=== PATIENT | female | born 1995 | race Caucasian/White ===

== ENCOUNTER 2017-02-05 16:07 | Emergency (ER) | payer OTHER ==
[~2017-02-05] VITALS: Ht 160 cm; Wt 66.2 kg
[~2017-02-05 16:07] MED LIST: BCPILLS PO
[2017-02-05 16:09] VITALS: Ht 160 cm; Wt 66.2 kg
--- NOTE | 2017-02-05 16:22 | EMERGENCY ROOM VISIT NOTE ---
ED Visit Note First contact with patient: 16:12 CHIEF COMPLAINT: Foot pain HISTORY OF PRESENT ILLNESS: This 21-year-old female patient presents to the emergency department ambulatory complaining of swelling and pain in the right foot at rest and worse with weight bearing. 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 The patient rates the pain as sharp and 6/10. The patient has no significant relief of the pain. The patient is able to walk. No numbness or weakness. No ankle pain. There are no lacerations of the foot. She complains of pain in the first, second and third toes. Patient denies previous injury to this foot. REVIEW OF SYSTEMS: GENERAL: A 6 system review of systems was completed with positives and pertinent negatives in the HPI. ALLERGIES: Penicillin, sulfa MEDICATIONS: None PMH: None SOCIAL HISTORY: The patient lives locally. She is employed PHYSICAL EXAM: Vital Signs: Reviewed Nurse's notes, vital signs stable. GENERAL : This is a 21-year-old female, in no acute distress, but appears in pain, well- developed, well-nourished. MUSCULOSKELETAL: There is no visual deformity of the right foot. There is no erythema or ecchymosis. There is no warmth. There is tenderness over the first, second and third toes of the right foot. The range of motion of the ankle is not limited secondary . There is no tenderness over the plantar fascia. Dorsi flexion 5/5 and Plantar flexion 5/5. The skin is intact and there are no lacerations or puncture wounds. Dorsalis pedis pulse 2+ . Capillary refill less than 2 seconds. EMERGENCY DEPARTMENT COURSE: I examined the patient. An X-ray of the right foot was reviewed by myself and radiology and reveals no fracture or dislocation. The patient was placed in a post-op shoe . The patient was discharged home in good condition. [~ rep ct add3]] RIGHT FOOT MIN 3 VIEWS ROUTINE CLINICAL HISTORY: Right foot pain. Trauma. COMPARISON: None. DISCUSSION: No fractures or dislocations are visualized. IMPRESSION: No fractures identified. Current/Historical Medications No Active Prescriptions or Reported Meds Allergies Coded Allergies: Penicillins (Verified Allergy, Severe, hives, 02/22/13) Sulfa Antibiotics (Verified Allergy, Intermediate, Hives, 02/05/17) Vital Signs Date Time Temp Pulse Resp B/P (MAP) Pulse Ox O2 Delivery O2 Flow Rate FiO2 02/05/17 17:32 36.9 74 18 114/77 98 02/05/17 16:09 36.9 74 18 114/77 98 Room Air Departure Information Impression Primary Impression: Contusion of foot Additional Impression: Work related injury Dispostion Home / Self-Care Condition GOOD Prescriptions No Active Prescriptions or Reported Meds Referrals No Doctor, Assigned (PCP) Patient Instructions ED Contusion Foot, My [facility] Additional Instructions Ibuprofen 600 milligrams every 6-8 hours for pain Ice intermittently over the next 24-48 hours Recheck with occupational medicine or employee health in 5-7 days if pain has not resolved Wear the postop shoe when up and about for the next 5-7 days Return with any worsening symptoms Problem Qualifiers Primary Impression: Contusion of foot Encounter type: initial encounter
--- NOTE | 2017-02-05 16:58 | DIAGNOSTIC IMAGING REPORT ---
RIGHT FOOT MIN 3 VIEWS ROUTINE CLINICAL HISTORY: Right foot pain. Trauma. COMPARISON: None. DISCUSSION: No fractures or dislocations are visualized. IMPRESSION: No fractures identified. Electronically signed by: Sedrick Burkett M.D. 02/05/2017 4:57 PM Dictated Date/Time: 02/05/2017 4:56 PM
[2017-02-05 17:32] VITALS: BP 114/77; PULSE 74; TEMP 36.9; O2SAT 98
== END 2017-02-05 17:33 | disposition home or self-care (01) ==
LOC: C.EDB 16:09 → C.EDD 17:33
DX: S90.31XA Contusion of right foot, initial encounter (principal); W20.8XXA Other cause of strike by thrown, projected or falling object, initial encounter; Y92.89 Other specified places as the place of occurrence of the external cause; Y99.0 Civilian activity done for income or pay; Z88.0 Allergy status to penicillin; Z88.2 Allergy status to sulfonamides

== ENCOUNTER → 2017-04-28 | Outpatient (CLI) | payer OTHER ==
[2017-05-01 02:28] LABS: CHLAMYDIA TRACH RNA*** NOT DETECTED (NOT DETECTED); GC (NEIS GONORRHOEAE)RNA** NOT DETECTED (NOT DETECTED)
== END | disposition home or self-care (01) ==
LOC: C.LABSPEC 14:53
PROVIDERS: ATTEND Obstetrics & Gynecology
DX: Z34.01 Encounter for supervision of normal first pregnancy, first trimester (principal)

== ENCOUNTER → 2017-04-28 | Outpatient (CLI) | payer OTHER | END | disposition home or self-care (01) | LOC: C.LABSPEC 16:06 | PROVIDERS: ATTEND Obstetrics & Gynecology | DX: Z34.01 Encounter for supervision of normal first pregnancy, first trimester (principal) ==

== ENCOUNTER → 2017-09-22 | Outpatient (CLI) | payer OTHER | END | disposition home or self-care (01) | LOC: C.LABSPEC 14:49 | PROVIDERS: ATTEND Obstetrics & Gynecology | DX: O26.892 Other specified pregnancy related conditions, second trimester (principal); Z3A.00 Weeks of gestation of pregnancy not specified; R30.0 Dysuria ==

== ENCOUNTER 2017-12-18 03:43 | Inpatient (IN) | payer OTHER ==
[~2017-12-18] VITALS: Ht 160 cm; Wt 88.0 kg
[2017-12-18] MEDS ORDERED: no home meds (04:53)
[2017-12-18 04:54] VITALS: BMI 34.4
[2017-12-18] MEDS ORDERED: BUPIVACAINE 0.25% 30 ML VIAL ONE (08:06)
[2017-12-18] MEDS ORDERED: EpHEDrine SULFATE INJ 50 MG/ML AMP ONE (08:07)
[2017-12-18] MEDS ORDERED: FENTANYL 2MCG/ML ROPIV 1.25MG/ML 100ML BAG ONE (08:07)
[2017-12-18] MEDS ORDERED: FENTANYL CITRATE INJ 50 MCG/1 ML 2 ML VIAL ONE (08:07)
[2017-12-18 08:13] LABS: HEMATOCRIT 37.8 % (37-47); HEMOGLOBIN 12.6 g/dL (12.0-16.0); MEAN CELL VOLUME 88.3 fL (80-100); MEAN CORPUSCULAR HEMOGLOBIN 29.4 pg (25-34); MEAN CORPUSCULAR HGB CONC 33.3 g/dl (32-36); MEAN PLATELET VOLUME 12.1 fL (7.4-10.4); PLATELET COUNT 137 K/uL (130-400); RED CELL DISTRIBUTION WIDTH CV 12.6 % (11.5-14.5); RED CELL DISTRIBUTION WIDTH SD 40.4 fL (36.4-46.3); WHITE BLOOD COUNT 18.99 K/uL (4.8-10.8)
[2017-12-18 08:38] VITALS: Ht 160 cm; Wt 88.0 kg
[2017-12-18] MEDS ORDERED: NALOXONE HCL INJ 1 MG in SODIUM CHLORIDE 0.9% 1000ML 1,000 ML IV PRN (09:49)
[2017-12-18] MEDS ORDERED: LACTATED RINGER'S 1000ML 500 ML IV PRN (09:49)
[2017-12-18] MEDS ORDERED: FENTANYL 2MCG/ML ROPIV 1.25MG/ML 100ML BAG EPI PRN (10:00)
[2017-12-18] MEDS ORDERED: DiphenhydrAMINE HCL 50 MG/ML VIAL IV PRN (10:00)
[2017-12-18] MEDS ORDERED: EpHEDrine SULFATE INJ 50 MG/ML AMP IV PRN (10:00)
[2017-12-18] MEDS ORDERED: NALOXONE HCL INJ 0.4 MG/1 ML VIAL/CARP IV PRN (10:00)
[2017-12-18] MEDS ORDERED: NALBUPHINE HCL INJ 10 MG/ML 1ML AMP IV PRN (10:00)
[2017-12-18] MEDS ORDERED: NURSING VERBAL MED ORDER ONE (10:00)
[2017-12-18] MEDS ORDERED: ONDANSETRON INJ 2 MG/ML 2 ML VIAL IV PRN (10:00)
[2017-12-18] MEDS ORDERED: LACTATED RINGER'S 1000ML 1,000 ML IV SCH (10:00)
[2017-12-18] MEDS ORDERED: PROMETHAZINE HCL INJ 6.25 MG in SODIUM CHLORIDE 0.9% 50ML 50 ML IV PRN (10:00)
[2017-12-18] MEDS ORDERED: OXYTOCIN 30 UNITS/500ML NSS IV ONE (12:38)
[2017-12-18] MEDS ORDERED: OXYTOCIN 30 UNITS/500ML NSS IV PRN (14:15)
[2017-12-18] MEDS ORDERED: BENZOCAINE 20% AER SPR 82.5 GM CAN EXT PRN (14:15)
[2017-12-18] MEDS ORDERED: ACETAMINOPHEN 325 MG TAB PO PRN (14:15)
[2017-12-18] MEDS ORDERED: ACETAMINOPHEN/CODEINE 300/30MG TAB PO PRN ×2 (14:15)
[2017-12-18] MEDS ORDERED: HYDROCORTISONE ACETATE 25 MG SUPP PR PRN (14:15)
[2017-12-18] MEDS ORDERED: SUPERCREAM 0.870 % 15GM JAR EXT PRN (14:15)
[2017-12-18] MEDS ORDERED: LANOLIN OINT EXT PRN (14:15)
[2017-12-18] MEDS ORDERED: OXYCODONE/ACETAMINOPHEN 5-325 TAB PO PRN (14:15)
[2017-12-18] MEDS ORDERED: DIPHTHERIA/TETANUS/PERTUSSIS 0.5 ML SYR/VIAL IM. ONE (14:15)
--- NOTE | 2017-12-18 14:27 | DELIVERY SUMMARY ---
DATE OF DELIVERY: 12/18/2017 DELIVERY NOTE She is a 22-year-old 1, para 1. General health is good. Blood type is O positive, rubella immune. She was admitted in spontaneous labor. During the night, her membranes ruptured surgically at about 3 cm. Fluid was clear. Soon after that, she requested and received epidural for pain control. After she got the epidural, she labored spontaneously without any stimulation, went to full dilatation and pushed out a live female infant via direct occiput anterior position over an intact perineum. was suctioned through the mouth and the nose. Cord was clamped and cut. Cord blood was taken. With IV Pitocin, the placenta was removed intact. Inspection of the peritoneum revealed a tear through the left labia minora and this was repaired anatomically, first with a deep suture of 2-0 Vicryl to approximate the edges of the labia minora, then a mattress suture on either side and then a running continuous suture in the vagina. She also had a small superficial tear on the right side which was repaired with a running 3-0 chromic. Following this, vag exam revealed no hematoma formation or sponges in the vagina. Hemostasis was good. Estimated blood loss was 200 mL. Estimated Apgars were 8 and 9 respectively. MTDD
--- NOTE | 2017-12-18 14:34 | Anesthesia Procedure Note ---
Anesthesia Epidural Removal Nt Date & Time Dec 18, 2017 at 14:34 Vital Signs Pain Intensity: 0.0 Notes Mental Status: alert / awake / arousable, participated in evaluation Nausea / Vomiting: adequately controlled Pain: adequately controlled Airway Patency, RR, SpO2: stable & adequate BP & HR: stable & adequate Hydration State: stable & adequate Neuraxial Anesthesia: was administered Anesthetic Complications: no major complications apparent, pt satisfied with anesthetic care Epidural: removed without complications, with tip intact
[2017-12-18] MEDS: IBUPROFEN 600 MG TAB PO PRN ×2 (17:24→23:24)
[2017-12-18 17:25] VITALS: BP 118/73; PULSE 109; TEMP 36.7
[2017-12-18] MEDS: DOCUSATE SODIUM 100 MG CAP PO SCH (20:16)
[2017-12-18 20:20] VITALS: BP 110/64; PULSE 108; TEMP 36.7; O2SAT 96
[2017-12-18 23:05] VITALS: BP 122/82; PULSE 90; TEMP 36.6; O2SAT 98
[2017-12-19 03:15] VITALS: BP 122/83; PULSE 86; TEMP 36.5; O2SAT 96
[2017-12-19 06:45] LABS: HEMATOCRIT 35.3 % (37-47); HEMOGLOBIN 11.9 g/dL (12.0-16.0)
[2017-12-19 07:54] VITALS: BP 114/74; PULSE 95; TEMP 36.5; O2SAT 98
[2017-12-19] MEDS: PRENATAL VITAMIN TAB PO SCH (07:55)
[2017-12-19] MEDS: FERROUS SULFATE 325 MG TAB PO SCH (07:55)
[2017-12-19] MEDS: DOCUSATE SODIUM 100 MG CAP PO SCH ×2 (07:55→20:10)
--- NOTE | 2017-12-19 09:01 | Progress Note ---
Subjective Dec 19, 2017. Subjective conversation w/ patient Ambulation: ambulating normally Voiding: no voiding problems Passing Gas: Yes Diet Tolerance: Regular Diet Lochia: Small Feeding Type: Breast Feeding Review of Systems Constitutional: + fever Objective Vital Signs Date Time Temp Pulse Resp B/P (MAP) Pulse Ox O2 Delivery O2 Flow Rate FiO2 12/19/17 07:54 36.5 95 18 114/74 (87) 98 Room Air 12/19/17 07:45 Room Air 12/19/17 03:15 36.5 86 16 122/83 (96) 96 Room Air 12/18/17 23:05 98 Room Air 12/18/17 23:05 36.6 90 18 122/82 (95) 98 Room Air 12/18/17 20:20 36.7 108 18 110/64 (79) 96 Room Air 12/18/17 17:25 Room Air 12/18/17 17:25 36.7 109 20 118/73 (88) Room Air Physical Exam General Appearance: WELL-APPEARING Abdomen: non tender Fundus: Firm, Non-Tender Extremities: no pedal edema, no calf tenderness Laboratory Results Last 24 Hours Test 12/19/17 06:32 Hemoglobin 11.9 g/dL Hematocrit 35.3 % Assessment and Plan Problem List Medical Problems: (1) Contusion of foot Status: Acute (2) Work related injury Status: Acute Post- Day#: 1
[2017-12-19 13:41] VITALS: BP 118/77; PULSE 93; TEMP 37
[2017-12-19 16:30] VITALS: BP 114/72; PULSE 102; TEMP 36.8; O2SAT 98
[2017-12-19] MEDS: IBUPROFEN 600 MG TAB PO PRN (17:32)
[2017-12-19 19:55] VITALS: BP 129/82; PULSE 110; TEMP 36.8; O2SAT 98
[2017-12-19] MEDS ORDERED: BISACODYL 5 MG TABEC PO SCH (20:00)
[2017-12-20 03:05] VITALS: BP 117/68; PULSE 84; TEMP 36.7; O2SAT 97
[2017-12-20] MEDS ORDERED: BISACODYL 10 MG SUPP PR PRN (07:00)
[2017-12-20 08:00] VITALS: BP 114/76; PULSE 84; TEMP 36.7; O2SAT 96
--- NOTE | 2017-12-20 08:12 | Progress Note ---
Subjective Dec 20, 2017. Subjective conversation w/ patient Ambulation: ambulating normally Voiding: no voiding problems Passing Gas: Yes Diet Tolerance: Regular Diet Lochia: Small Feeding Type: Breast Feeding Review of Systems Constitutional: + fever Objective Vital Signs Date Time Temp Pulse Resp B/P (MAP) Pulse Ox O2 Delivery O2 Flow Rate FiO2 12/20/17 03:05 36.7 84 16 117/68 (84) 97 Room Air 12/19/17 19:55 36.8 110 18 129/82 (98) 98 Room Air 12/19/17 19:55 98 Room Air 12/19/17 16:30 36.8 102 16 114/72 (86) 98 Room Air 12/19/17 16:30 98 Room Air 12/19/17 13:41 37.0 93 16 118/77 (91) Room Air Physical Exam General Appearance: WELL-APPEARING Abdomen: non tender Fundus: Firm, Non-Tender Extremities: no pedal edema, no calf tenderness Assessment and Plan Problem List Medical Problems: (1) Contusion of foot Status: Acute (2) Work related injury Status: Acute Post- Day#: 2
--- NOTE | 2017-12-20 08:14 | Discharge Instructions ---
Discharge Instructions Date of Service Dec 20, 2017. Admission Reason for Admission: LABOR Discharge Discharge Diagnosis / Problem: term Discharge Goals Goal(s): Routine recovery after delivery Activity Recommendations Activity Limitations: as noted below ACTIVITY RECOMMENDATIONS: * Gradual return to full activity over the next 2-3 weeks. * No lifting - nothing heavier than baby over the next 2-3 weeks. * Do not engage in vigorous exercise, sexual activity or sports until cleared by your physician. * Do not drive or operate any motorized equipment until cleared by your physician. * You may shower/bathe daily. DIET: Resume Previous Diet If Breast-feeding: * Increase caloric intake by 500 calories, eat 3 well balanced meals, 2 high protein snacks a day and drink 6-8 8oz. glasses of fluid per day. BREAST CARE: If you are not breast feeding: * Wear a supportive bra 24 hours a day for one to two weeks. * Avoid stimulating your breasts and nipples as much as possible during the first few weeks after delivery. * When taking a shower, have the warm water hit your back, not breasts. * When your breasts feel full, apply ice packs. Usually three to four times a day helps ease the discomfort. * Take a mild pain medication (Tylenol / Motrin) when you are uncomfortable. If breast feeding: * Use breast milk to lubricate nipples. Lansinoh cream may be used for sore nipples. You do not need to remove cream prior to breast feeding. If using a different brand of cream, check the label for directions regarding removal of cream prior to nursing. * Wear a supportive bra. * If having problems with breasts or breast feeding, call a customer service consultant or your health care provider. OVER THE COUNTER MEDICATION: * For discomfort or pain, you may use Acetaminophen (Tylenol), Ibuprofen (Advil ), or Naproxen (Aleve) following the package directions. * For constipation you may use Colace following the package directions. SPECIAL CARE INSTRUCTIONS: * Vaginal rest (no tampons, douching, intercourse) until after doctor 's visit. * control as discussed with doctor. * Verbalizes understanding of car seat law as reviewed with patient nursing. * Car Seat hand-out given and reviewed with patient by nursing. * Shaken baby information reviewed with patient by nursing. Call you doctor if: * Temperature greater than or equal to 100.4 degrees F or 38.0 degrees C. Take your temperature twice daily for a week. * Bleeding becomes heavier than the heaviest part of your period - saturating a sanitary pad within an hour. * Passing large clots. * Bleeding has a foul smelling odor. * Signs and symptoms of phlebitis: leg pain, warm, red or swollen area on leg. * "Baby Blues" lasting longer than two weeks. ++ If you have had a and incision has increased pain, redness, swelling, presence of any drainage, or if the incision starts to open up. If you have any questions or concerns, call your health care practitioner at [phone]. FOLLOW-UP VISIT: Please call the office at to schedule a 6 week examination. . Current Hospital Diet ACTIVITY RECOMMENDATIONS: * Gradual return to full activity over the next 2-3 weeks. * No lifting - nothing heavier than baby over the next 2-3 weeks. * Do not engage in vigorous exercise, sexual activity or sports until cleared by your physician. * Do not drive or operate any motorized equipment until cleared by your physician. * You may shower/bathe daily. DIET: Resume Previous Diet If Breast-feeding: * Increase caloric intake by 500 calories, eat 3 well balanced meals, 2 high protein snacks a day and drink 6-8 8oz. glasses of fluid per day. BREAST CARE: If you are not breast feeding: * Wear a supportive bra 24 hours a day for one to two weeks. * Avoid stimulating your breasts and nipples as much as possible during the first few weeks after delivery. * When taking a shower, have the warm water hit your back, not breasts. * When your breasts feel full, apply ice packs. Usually three to four times a day helps ease the discomfort. * Take a mild pain medication (Tylenol / Motrin) when you are uncomfortable. If breast feeding: * Use breast milk to lubricate nipples. Lansinoh cream may be used for sore nipples. You do not need to remove cream prior to breast feeding. If using a different brand of cream, check the label for directions regarding removal of cream prior to nursing. * Wear a supportive bra. * If having problems with breasts or breast feeding, call a customer service consultant or your health care provider. OVER THE COUNTER MEDICATION: * For discomfort or pain, you may use Acetaminophen (Tylenol), Ibuprofen (Advil ), or Naproxen (Aleve) following the package directions. * For constipation you may use Colace following the package directions. SPECIAL CARE INSTRUCTIONS: * Vaginal rest (no tampons, douching, intercourse) until after doctor 's visit. * control as discussed with doctor. * Verbalizes understanding of car seat law as reviewed with patient nursing. * Car Seat hand-out given and reviewed with patient by nursing. * Shaken baby information reviewed with patient by nursing. Call you doctor if: * Temperature greater than or equal to 100.4 degrees F or 38.0 degrees C. Take your temperature twice daily for a week. * Bleeding becomes heavier than the heaviest part of your period - saturating a sanitary pad within an hour. * Passing large clots. * Bleeding has a foul smelling odor. * Signs and symptoms of phlebitis: leg pain, warm, red or swollen area on leg. * "Baby Blues" lasting longer than two weeks. ++ If you have had a and incision has increased pain, redness, swelling, presence of any drainage, or if the incision starts to open up. If you have any questions or concerns, call your health care practitioner at [phone]. FOLLOW-UP VISIT: Please call the office at to schedule a 6 week examination. Patient's current hospital diet: Regular Diet Discharge Diet Recommended Diet: Clear Liquid Diet Pending Studies Studies pending at discharge: no Medical Emergencies . Who to Call and When: Medical Emergencies: If at any time you feel your situation is an emergency, please call 911 immediately. . Non-Emergent Contact Non-Emergency issues call your: Judicial Law Clerk Call Non-Emergent contact if: temperature is above 100.5 . . "Provider Documentation" section prepared by Sulaiman Matson. .
[2017-12-20] MEDS: PRENATAL VITAMIN TAB PO SCH (08:25)
[2017-12-20] MEDS: FERROUS SULFATE 325 MG TAB PO SCH (08:25)
[2017-12-20] MEDS: DOCUSATE SODIUM 100 MG CAP PO SCH (08:25)
[2017-12-20 13:30] VITALS: BP_DIAS 76; PULSE 84; TEMP 36.7
== END 2017-12-20 13:58 | disposition home or self-care (01) | DRG 775 ==
LOC: C.OPB 03:43 → C.LD 03:43 → C.OPB 07:41 → C.LD 07:41 → C.OBG 17:25
PROVIDERS: ADMIT Obstetrics & Gynecology; ATTEND Obstetrics & Gynecology
PROC: 10E0XZZ Delivery of Products of Conception, External Approach (ICD-10-PCS; principal; 2017-12-18)
PROC: 0HQ9XZZ Repair Perineum Skin, External Approach (ICD-10-PCS; principal; 2017-12-18)
DX: O70.0 First degree perineal laceration during delivery (principal); Z3A.39 39 weeks gestation of pregnancy; Z37.0 Single live birth

== ENCOUNTER 2020-11-10 01:19 | Inpatient (IN) ==
[2020-11-10] MEDS ORDERED: OXYTOCIN 30 UNITS/500 ML BAG IV PRN ×3 (02:02→10:48)
[2020-11-10] MEDS ORDERED: LACTATED RINGER'S 1,000 ML IV PRN (02:02)
[2020-11-10 02:31] LABS: Hemoglobin 11.9 g/dL (12.0-16.0); Mean Corpuscular Hemoglobin 30.4 pg (25-34); Mean Corpuscular Volume 89.3 fL (80-100); Mean Platelet Volume 11.1 fL (7.4-10.4); Platelet Count 156 K/uL (130-400); RDW Coefficient of Variation 12.8 % (11.5-14.5); RDW Standard Deviation 41.1 fL (36.4-46.3); Red Blood Count 3.92 M/uL (4.2-5.4)
[2020-11-10] MEDS: BUTORPHANOL TARTRATE 1 MG/ML VIAL IV PRN ×2 (03:44→05:54)
[2020-11-10] MEDS ORDERED: ePHEDrine sulfate 50 MG/ML AMP ONE (07:02)
[2020-11-10] MEDS ORDERED: BUPIVACAINE 0.25% 30 ML VIAL ONE (07:02)
[2020-11-10] MEDS ORDERED: SODIUM CHLORIDE 0.9% INJ 10 ML VIAL ONE (07:02)
[2020-11-10] MEDS ORDERED: fentaNYL citrate 100 MCG/2 ML VIAL ONE (07:03)
[2020-11-10] MEDS ORDERED: fentaNYL 2MCG/ML ROPIVACAINE 1.25MG/ML 100 ML BAG EPI ONE (07:03)
[2020-11-10] MEDS ORDERED: NALOXONE HCL 0.4 MG/1 ML VIAL/CARP IV PRN (07:40)
[2020-11-10] MEDS ORDERED: ONDANSETRON INJ 2 MG/ML 2 ML VIAL IV PRN (07:40)
[2020-11-10] MEDS ORDERED: NALOXONE HCL 1 MG in SODIUM CHLORIDE 0.9% 1000ML 1,000 ML IV PRN (07:40)
[2020-11-10] MEDS ORDERED: ePHEDrine sulfate 50 MG/ML AMP IV PRN (07:40)
[2020-11-10] MEDS ORDERED: fentaNYL 2MCG/ML ROPIVACAINE 1.25MG/ML 100 ML BAG EPI PRN (07:40)
[2020-11-10] MEDS ORDERED: diphenhydrAMINE 50 MG/ML VIAL IV PRN (07:40)
[2020-11-10] MEDS ORDERED: PROMETHAZINE HCL 6.25 MG in SODIUM CHLORIDE 0.9% 50 ML IV PRN (07:40)
--- NOTE | 2020-11-10 07:40 | Anesthesiology Consultation ---
Date of Service November 10, 2020 Assessment & Plan (1) Encounter for pre-operative examination: Chart Review Chart Review: Patient NOT seen in Pre Admission Testing and Acceptable Risk for Labor Epidural Consults Requested none ASA ASA2 Proposed Anesthesia Anesthesia Type: Labor Epidural Risk / Benefits Reviewed With: PT / POA / Parent / Guardian, Accepts Plan and Informed Consent Obtained History Height/Weight Height: 5 ft 3 in Weight: 106.141 kg Allergies Allergy/AdvReac Type Severity Reaction Status Date / Time Penicillins Allergy Severe hives Verified 11/10/20 01:36 amoxicillin Allergy Intermediate HIVES Verified 11/10/20 01:36 Sulfa (Sulfonamide Allergy Intermediate Hives Verified 11/10/20 01:36 Antibiotics) Medications Home Medications Medication Instructions Recorded Confirmed Last Taken [id number]-FA 1 tab PO DAILY 11/10/20 11/10/20 11/09/20 [] Active Medications Generic Name Dose Route Start Last Admin Trade Name Freq PRN Reason Stop Dose Admin Butorphanol Tartrate 1 mg 11/10/20 02:57 11/10/20 05:54 Butorphanol Tartrate 1 Mg/Ml Vial IV 12/10/20 02:56 1 mg Q2HWA PRN Administration Pain Lactated Ringer's 1,000 mls @ 125 mls/hr 11/10/20 02:02 11/10/20 07:20 Lr IV 11/12/20 02:01 125 mls/hr .Q8H PRN Infusion L&D Protocol Protocol Past Medical History Medical History Spontaneous vaginal delivery [facility] 12/2017 Exercise / Class Metabolic Activity II 4-5 Yardwork/Stairs/Walk up hill Past Surgical History Surgical History No history of previous surgery Past Anesthesia History No Hx of Anesthesia Complications and No Family Hx of Anesthesia Complications History of PONV No Hx of PONV and No Hx of Motion Sickness Social History Smoking Status: Former smoker Hx Alcohol Use: No Hx Substance Use: No Physical Exam Vital Signs Last Vital Signs Temp 37.0 C 11/10/20 01:39 Pulse 108 H 11/10/20 07:34 Resp 18 11/10/20 07:00 BP 113/66 11/10/20 07:34 Pulse Ox 98 06/25/21 07:33 ENMT Mouth: no dentition abnormality Thyromental Distance: > or= 3.5 Finger Breadths Mallampati Class: II Neck normal visual inspection Respiratory normal respiratory effort Auscultation: lungs clear to auscultation bilaterally Cardiovascular Rate/Rhythm: regular rate and regular rhythm Psychiatric Orientation: alert Lab Results Anesthesia Preop Results Results Anesthesia Widget: WBC 12.50 K/uL (4.8-10.8) H 11/10/20 Hgb 11.9 g/dL (12.0-16.0) L 11/10/20 Hct 35.0 % (37-47) L 11/10/20 Plt 156 K/uL (130-400) 11/10/20 SARS-CoV-2, RNA, NAAT NEGATIVE (NEGATIVE) 11/10/20 Testing Laboratory Results 11/10/20 02:21
[2020-11-10] MEDS ORDERED: LIDOCAINE 1% LOCAL 20 ML VIAL ONE (10:29)
[2020-11-10] MEDS ORDERED: SUPERCREAM 0.870% 15 GM JAR EXT PRN (10:48)
[2020-11-10] MEDS ORDERED: BENZOCAINE 20% AER SPR 82.5 GM CAN EXT PRN (10:48)
[2020-11-10] MEDS ORDERED: HYDROCORTISONE ACETATE 25 MG SUPP PR PRN (10:48)
[2020-11-10] MEDS ORDERED: oxyCODONE/ACETAMINOPHEN 5mg/325mg TAB PO PRN (10:48)
[2020-11-10] MEDS ORDERED: DIPHTHERIA/TETANUS/PERTUSSIS 0.5 ML SYR/VIAL IM ONE (10:48)
[2020-11-10] MEDS ORDERED: ACETAMINOPHEN W/CODEINE #3 1 TAB PO PRN (10:48)
[2020-11-10] MEDS ORDERED: bisacodyL 10 MG SUPP PR PRN (10:48)
[2020-11-10] MEDS ORDERED: ACETAMINOPHEN 325 MG TAB PO PRN (10:48)
--- NOTE | 2020-11-10 11:02 | Delivery Summary ---
DATE: 11/10/2020 She is 1, para 2, blood type O positive, group B strep negative. Came in the night before, s he was scheduled for induction, in labor. She had spontaneous unstimulated labor. She received roly ral doses of Stadol for pain control and then eventually had an epidural. Got good pain relief from the epidural. After epidural was administered, membranes were ruptured surgically. Fluid was clear. Eventually, we started to stimulate her with IV Pitocin to get the contractions more regular. She went to full dilatation, pushed out a live male via direct occiput anterior position over an i ntact perineum. There was a nuchal cord around the neck, which was slipped over the body. We allowe d the cord to pulse for 1 minute and then we clamped the cord. The cord was cut by the father. Cord blood was taken. With IV Pitocin running, the placenta was removed intact. Inspection revealed the perineum was intact, but she had a midline clitoral laceration that was bleeding and 2 periurethral lacerations of the labia minora. These were all infiltrated with local. We then did suture the labi a minora lacerations with a running 3-0 chromic on both the right and left side. In the midline clit oral laceration, we used 3 interrupted sutures of 3-0 chromic to control the bleeding. Following thi s, hemostasis was good. Vaginal exam was normal. Estimated blood loss was 100 mL. Job ID: [id number]
--- NOTE | 2020-11-10 15:14 | Anesthesia Procedure Note ---
Date of Service November 10, 2020 Anesthesia Post Epidural Note Vital Signs Vital Signs: Temp Pulse Resp BP Pulse Ox 36.4 C L 96 H 20 105/62 99 11/10/20 07:34 11/10/20 13:51 11/10/20 13:04 11/10/20 13:51 11/10/20 10:48 Notes Mental Status: alert / awake / arousable Nausea / Vomiting: adequately controlled Pain: adequately controlled Airway Patency, RR, SpO2: stable & adequate BP & HR: stable & adequate Hydration State: stable & adequate Neuraxial Anesthesia: was administered and sensory block is resolving Anesthetic Complications: no major complications apparent and Pt Satisfied with anesthetic care Epidural: Removed without complications and With tip intact
[2020-11-10] MEDS: IBUPROFEN 600 MG TAB PO PRN ×2 (19:43→23:46)
[2020-11-10] MEDS: DOCUSATE SODIUM 100 MG CAP PO SCH (20:34)
[2020-11-11] MEDS: IBUPROFEN 600 MG TAB PO PRN (05:31)
[2020-11-11 07:07] LABS: Hematocrit (blood only) 32.3 % (37-47); Hemoglobin 10.6 g/dL (12.0-16.0); Mean Corpuscular Hemoglobin 29.8 pg (25-34); Mean Corpuscular Hgb Conc 32.8 g/dL (32-36); Mean Corpuscular Volume 90.7 fL (80-100); Mean Platelet Volume 11.7 fL (7.4-10.4); Platelet Count 143 K/uL (130-400); RDW Coefficient of Variation 12.9 % (11.5-14.5); RDW Standard Deviation 42.7 fL (36.4-46.3); Red Blood Count 3.56 M/uL (4.2-5.4); White Blood Count 11.04 K/uL (4.8-10.8)
[2020-11-11] MEDS: DOCUSATE SODIUM 100 MG CAP PO SCH (07:42)
[2020-11-11] MEDS ORDERED: PRENATAL VITAMIN 1 TAB PO SCH (08:00)
--- NOTE | 2020-11-11 09:13 | Obstetrical Progress Note ---
Date of Service November 11, 2020 Assessment & Plan Admission and Anticipated Discharge Date Admission Date: November 10, 2020 Physical Exam Physical Exam: abdomen soft and non tender ambulating well no calf tenderness vaginal bleeding scant hgb 10.6 Results & Data ([facility]) Vital Signs (Past 12 Hours) Vital Signs Temp Pulse Resp BP Pulse Ox 11/11/20 07:40 36.5 C 75 18 93/58 L 99 11/11/20 04:05 36.5 C 74 16 96/62 L 98 11/10/20 23:40 36.8 C 77 16 105/70 97
[2020-11-11] MEDS ORDERED: bisacodyL 5 MG TABEC PO SCH (20:00)
== END 2020-11-11 12:45 | disposition home or self-care (01) | DRG 807 ==
LOC: 4S1 01:19 → 4S2 14:25

== ENCOUNTER 2024-01-04 02:12 | Inpatient (IN) ==
[2024-01-04] MEDS ORDERED: OXYTOCIN 30 UNITS/NSS 30 UNITS/500 ML BAG IV PRN ×2 (05:50→12:53)
[2024-01-04] MEDS ORDERED: LIDOCAINE 1% LOCAL 20 ML VIAL INFIL PRN (05:50)
--- NOTE | 2024-01-04 05:57 | History & Physical Report ---
Date of Service January 04, 2024 Assessment & Plan (1) 39 weeks gestation of : (2) PROM (premature rupture of membranes): (3) Encounter for induction of labor: Plan admit, iv, labs, rec induction, given no ctx, can opt for po cytotec and after discussion of options, pt agrees. aware of off label use and purpose. fhts categ 1. History of Present Illness Chief Complaint: leaking fluid since about 120am. Primary Care Provider: NO PCP 28yo at 39+wks ega presents to L&D with above cc. Large gush of clear fluid. No ctx. No vb. In LD nursing having difficulty showing leakage. Patient walked with minimal dc on pad. PNC c/b. Transfer of care at 30wks, Dr. Matson PNL rhpos, ri, gbs neg OBH: x 2 GYNH:nl paps no stds Allergies Allergy/AdvReac Type Severity Reaction Status Date / Time Penicillins Allergy Severe hives Verified 12/31/23 14:56 amoxicillin Allergy Intermediate HIVES Verified 12/31/23 14:56 Sulfa (Sulfonamide Allergy Intermediate Hives Verified 12/31/23 14:56 Antibiotics) Home Medications Medication Instructions Recorded Confirmed Type vits no.124-ferrous fum 1 tab DAILY 01/04/24 01/04/24 History 27 mg iron-folic acid 800 mcg tablet ( Vitamin) Patient History Medical History (Updated 01/04/24 @ 05:56 by Anabell James MD, FACOG) Varicella vaccination Work related injury Contusion of foot Spontaneous vaginal delivery [facility] 12/2017 Surgical History No history of previous surgery Family History Father Hypertension Grandfather (Paternal) Hypertension Diabetes Denies family history of Ovarian cancer Breast cancer Colorectal cancer Social History (Updated 10/27/23 @ 14:13 by Pebbles Chau, OSWALD) Smoking Status: Never smoker Second Hand Exposure: No; Do You Dip or Chew Tobacco: No; Hx Alcohol Use: No Hx Substance Use: No Preferred Language: Irish Communication Ability: Effective Facsimile Operator Required: No Beliefs That Will Affect Care: None marital status: marital status details: Celestine Woods (32) [phone] Current Living Situation: Spouse and Family Current Living Situation Comment: Celestine- , Lois-6, Michael-3 current occupational status: employed current occupation: [employer] How many Children do You have: 2 Other Information That Helps Us Care for You: No Feels Safe at Home: Yes Assistive Devices: Glasses Review of Systems as per Subjective / HPI Physical Exam Constitutional: WD/WN, vitals as above Respiratory: normal respiratory effort, lungs clear to auscultation Cardiovascular: Rate/Rhythm: regular rate and regular rhythm Gastrointestinal (Abdomen): soft gravid nt [id number]# Musculoskeletal: no edema nontender calves Neurologic: grossly normal Psychiatric: A+Ox3, euthymic affect Genitourinary: Manual OB Exam: + cervical dilation 1 cm, + cervical effacement 50% and + station (mid medium) -2 OB Exam Monitor Tracing: + external FHT monitor used, + external uterine monitor used (irreg), + category I and + normal FHT variability SSE +pooling, +nitrazine +ferning Results & Data Vital Signs (Past 12 Hours) Vital Signs Temp Pulse Resp BP 01/04/24 02:30 99.0 F 18 01/04/24 02:27 91 H 128/84 Coding Level of Care Code None Diagnoses 39 weeks gestation of Z3A.39 PROM (premature rupture of membranes) O42.90 Encounter for induction of labor Z34.90
[2024-01-04] MEDS: miSOPROStoL 50 MCG TAB PO ONE (06:02)
[2024-01-04 06:28] LABS: Hematocrit (blood only) 32.3 % (37.0-47.0); Hemoglobin 10.9 g/dl (12.0-16.0); Mean Corpuscular Hemoglobin 29.5 pg (25.0-34.0); Mean Corpuscular Hgb Conc 33.7 g/dL (32.0-36.0); Mean Corpuscular Volume 87.3 fL (80.0-100.0); Mean Platelet Volume 12.2 fL (9.4-12.4); Platelet Count 123 K/uL (130-400); RDW Coefficient of Variation 12.6 % (11.5-14.5); RDW Standard Deviation 40.1 fL (36.4-46.3); White Blood Count 9.34 K/ul (4.8-10.8)
[2024-01-04] MEDS: LACTATED RINGER'S 1,000 ML IV PRN (09:50)
--- NOTE | 2024-01-04 10:02 | Anesthesiology Consultation ---
Date of Service January 04, 2024 Assessment & Plan (1) Encounter for pre-operative examination: Chart Review Chart Review: Acceptable Risk for Labor Epidural History Height/Weight Height: 5 ft 3 in Weight: 105.233 kg Allergies Allergy/AdvReac Type Severity Reaction Status Date / Time Penicillins Allergy Severe hives Verified 12/31/23 14:56 amoxicillin Allergy Intermediate HIVES Verified 12/31/23 14:56 Sulfa (Sulfonamide Allergy Intermediate Hives Verified 12/31/23 14:56 Antibiotics) Medications Home Medications Medication Instructions Recorded Confirmed Last Taken vits no.124-ferrous fum 1 tab DAILY 01/04/24 01/04/24 01/03/24 27 mg iron-folic acid 800 mcg tablet ( Vitamin) Active Medications Generic Name Dose Route Start Last Admin Trade Name Freq PRN Reason Stop Dose Admin Lactated Ringer's 1,000 mls @ 125 mls/hr 01/04/24 05:50 01/04/24 09:50 Lr IV 01/06/24 05:49 999 mls/hr .Q8H PRN Administration L&D Protocol Protocol Past Medical History Medical History (Updated 01/04/24 @ 10:02 by Cyrus Saravia MD) Varicella vaccination Contusion of foot Spontaneous vaginal delivery [facility] 12/2017 Past Family History Family History Father Hypertension Grandfather (Paternal) Hypertension Diabetes Denies family history of Ovarian cancer Breast cancer Colorectal cancer Past Surgical History Surgical History No history of previous surgery Social History Smoking Status: Never smoker Do You Dip or Chew Tobacco: No Hx Alcohol Use: No Hx Substance Use: No Physical Exam Vital Signs Last Vital Signs Temp 37.1 C 01/04/24 09:00 Pulse 89 01/04/24 09:55 Resp 18 01/04/24 09:00 BP 121/83 01/04/24 07:01 Pulse Ox 98 01/04/24 09:55 Testing Laboratory Results 01/04/24 06:13 Blood Type Cancelled 01/04/24 Unknown Antibody Screen Cancelled 01/04/24 Unknown
[2024-01-04] MEDS: fentANYL 2 MCG/ML BUPIVacaine 0.125%-NSS 100ML BAG ONE (10:31)
[2024-01-04] MEDS: fentaNYL citrate PF 100 MCG/2 ML VIAL ONE (10:31)
[2024-01-04] MEDS: LIDOCAINE 2%/EPINEPHRINE 1:200,000 20 ML PF ONE (10:32)
[2024-01-04] MEDS: BUPIVACAINE 0.25% PF 30 ML VIAL ONE (10:32)
[2024-01-04] MEDS ORDERED: ROPIVACAINE 0.5% PF 5 MG/ML 20 ML VIAL EPI PRN (10:33)
[2024-01-04] MEDS ORDERED: NALOXONE HCL 1 MG in SODIUM CHLORIDE 0.9% 1,000 ML IV PRN (10:33)
[2024-01-04] MEDS ORDERED: ONDANSETRON INJ 2 MG/ML 2 ML VIAL IV PRN (10:33)
[2024-01-04] MEDS ORDERED: fentANYL 2 MCG/ML BUPIVacaine 0.125%-NSS 100ML BAG EPI PRN (10:33)
[2024-01-04] MEDS ORDERED: NALOXONE HCL 0.4 MG/1 ML VIAL/CARP IV PRN (10:33)
[2024-01-04] MEDS ORDERED: ePHEDrine sulfate 50 MG/ML AMP IV PRN (10:33)
[2024-01-04] MEDS ORDERED: LIDOCAINE 2% MPF LOCAL 5 ML VIAL EPI PRN (10:33)
[2024-01-04] MEDS ORDERED: BUPIVACAINE 0.25% PF 30 ML VIAL EPI PRN (10:33)
[2024-01-04] MEDS ORDERED: fentaNYL citrate PF 100 MCG/2 ML VIAL EPI PRN (10:33)
[2024-01-04] MEDS ORDERED: SODIUM CHLORIDE 0.9% PF INJ 10 ML VIAL EPI PRN (10:33)
[2024-01-04] MEDS: CALCIUM CARBONATE 500 MG CHEWABLE TAB PO PRN (10:54)
--- NOTE | 2024-01-04 10:54 | Labor Progress Brief Note ---
Date of Service January 04, 2024 Subjective comfortable with epidural Assessment & Plan (1) 39 weeks gestation of : (2) PROM (premature rupture of membranes): (3) Encounter for induction of labor: Plan start pitocin to improve labor pattern. fhts categ 1 Admission and Anticipated Discharge Date Admission Date: January 04, 2024 Physical Exam Constitutional: WD/WN, vitals as above Genitourinary: Manual OB Exam: + cervical dilation 3 cm, + cervical effacement 80% and + station -2 OB Exam Monitor Tracing: + external FHT monitor used, + external uterine monitor used (q4-8), + category I and + normal FHT variability Results & Data Vital Signs (Past 12 Hours) Vital Signs Temp Pulse Resp BP Pulse Ox 01/04/24 10:50 96 H 100 01/04/24 10:47 107 H 126/68 01/04/24 10:45 99 H 98 01/04/24 10:42 107 H 127/69 01/04/24 10:40 104 H 98 01/04/24 10:37 114 H 110/63 01/04/24 10:35 99 01/04/24 10:35 131 H 01/04/24 10:35 105 H 124/62 01/04/24 10:33 100 H 119/70 01/04/24 10:31 107 H 117/87 01/04/24 10:30 90 98 01/04/24 10:29 80 119/79 01/04/24 10:25 86 98 01/04/24 10:20 110 H 99 01/04/24 10:15 127 H 97 01/04/24 10:13 95 H 94 01/04/24 10:10 83 100 01/04/24 10:05 101 H 98 01/04/24 10:00 84 100 01/04/24 09:55 89 98 01/04/24 09:50 84 99 01/04/24 09:00 18 01/04/24 09:00 98.8 F 18 01/04/24 07:01 98.8 F 74 18 121/83 01/04/24 07:00 98.8 F 18 01/04/24 06:24 81 115/72 01/04/24 06:00 18 01/04/24 06:00 98.2 F 18 01/04/24 02:30 99.0 F 18 01/04/24 02:27 91 H 128/84 Coding Level of Care Code None Diagnoses 39 weeks gestation of Z3A.39 PROM (premature rupture of membranes) O42.90 Encounter for induction of labor Z34.90
[2024-01-04] MEDS: OXYTOCIN 30 UNITS/NSS 30 UNITS/500 ML BAG IV PRN (10:56)
[2024-01-04] MEDS: BUPIVACAINE 0.25% PF 30 ML VIAL EPI STA (11:05)
[2024-01-04] MEDS: fentaNYL citrate PF 100 MCG/2 ML VIAL EPI STA (11:05)
[2024-01-04] MEDS: LIDOCAINE 2%/EPINEPHRINE 1:200,000 20 ML PF EPI STA (11:06)
[2024-01-04] MEDS: SODIUM CHLORIDE 0.9% PF INJ 10 ML VIAL EPI STA (11:06)
--- NOTE | 2024-01-04 12:52 | Delivery Summary ---
Vaginal Delivery Summary Date of Service January 04, 2024 Vaginal Delivery Summary The patient dilated to complete and pushed to deliver a viable female Apgars 8 and 9 via over intact perineum. Mild shoulder dystocia encountered relieved by Kodi manuevers, effective maternal expulse efforts and gentle downward traction. Loose nuchal x 1 reduced. Mouth and nose bulb suctioned at perineum. Body delivered with ease. Infant was vigorous and crying at . Cord clamped at 33 seconds of life and infant to maternal abdomen where the cord was then doubly clamped and cut. Placenta delivered spontaneously and intact, three-vessel cord. Hemostasis achieved with dilute pitocin and uterine massage and drainage of the bladder for approximately 150 cc under sterile conditions. Cervix and sulci intact. QBL 35 cc. Mother and baby stable in recovery. [facility] Vaginal Delivery Charge Delivery Type Details:
[2024-01-04] MEDS ORDERED: oxyCODONE/ACETAMINOPHEN 5mg/325mg TAB PO PRN (12:53)
[2024-01-04] MEDS ORDERED: HYDROCORTISONE ACETATE 25 MG SUPP PR PRN (12:53)
[2024-01-04] MEDS ORDERED: DIPHTHER/TETAN/PERTUS Vaccine (Tdap, Adol/Adult) 0.5mL IM ONE (12:53)
[2024-01-04] MEDS ORDERED: BENZOCAINE 20% SPRY 85 APPLN/85 GM CAN EXT PRN (12:53)
[2024-01-04] MEDS ORDERED: ACETAMINOPHEN 325 MG TAB PO PRN (12:53)
--- NOTE | 2024-01-04 13:56 | Anesthesia Procedure Note ---
Date of Service January 04, 2024 Anesthesia Post Epidural Note Vital Signs Vital Signs: Temp Pulse Resp BP Pulse Ox 36.6 C 89 20 116/61 99 01/04/24 11:00 01/04/24 13:54 01/04/24 12:30 01/04/24 13:54 01/04/24 12:45 Notes Mental Status: alert / awake / arousable and participated in evaluation Nausea / Vomiting: adequately controlled Pain: adequately controlled Airway Patency, RR, SpO2: stable & adequate BP & HR: stable & adequate Hydration State: stable & adequate Neuraxial Anesthesia: was administered and sensory block is resolving Anesthetic Complications: no major complications apparent Epidural: Removed without complications and With tip intact
[2024-01-04] MEDS: SODIUM CHLORIDE 0.9% PF INJ 10 ML VIAL ONE (14:27)
[2024-01-04] MEDS: ePHEDrine sulfate 50 MG/ML AMP ONE (14:27)
[2024-01-04] MEDS: OXYTOCIN 20 UNITS/LR 1,002 ML IV SCH (15:25)
[2024-01-04] MEDS: IBUPROFEN 600 MG TAB PO PRN (18:15)
[2024-01-04] MEDS: DOCUSATE SODIUM 100 MG CAP PO SCH (21:14)
--- NOTE | 2024-01-05 06:22 | Obstetrical Progress Note ---
Date of Service January 05, 2024 Assessment & Plan (1) Spontaneous vaginal delivery: Plan: PPD#1: Stable, no acute events overnight, continue routine care, ambulation, and diet as tolerated Rh+, gbs -, ri Admission and Anticipated Discharge Date Admission Date: January 04, 2024 Supervising Physician Co-Signing Physician Notes Resident Physician Supervision Note: I was present with Dr. Vargas during the history and exam. I discussed the case with the resident and agree with the findings and plan as documented in the note. Any exceptions or clarifications are listed here: stable, routine care. ready for dc. eating, voiding, ambulating. , rhpos, ri. abd soft ff 2down nt, ext nt calves. ppd#2 s/p dc home, instructions reviewed. f/u 6wks pp check. Documented By: Anabell James MD, FACOG Subjective Sole is a 28 y/o female who is PPD#1 following full-term . No abdominal cramping and mild pain well managed on analgesics. Is voiding. Is tolerating meals. Can ambulate on own. Currently breast feeding. Review of Systems 2 Constitutional: no fever, no chills and no sweats Respiratory: no dyspnea Cardiovascular: no chest pain, no palpitations and no calf pain Genitourinary: no dysuria Neurologic: no headache(s) Physical Exam 2 Physical Exam: General: Alert, oriented. No acute distress. Cardiac: Regular rate and rhythm, no murmurs, rubs, or gallops. Respiratory: Clear to auscultation bilaterally, no wheezes/rales/rhonchi. No increased work of breathing. Symmetrical chest rise. No respiratory distress. Abdomen: Soft, nontender, nondistended. Bowel sounds present. Uterus: Uterine fundus firm, palpable 2 cm below the umbilicus. Lower extremities: No lower extremity edema or swelling. No deep calf pain. Results & Data Vital Signs (Past 12 Hours) Vital Signs Temp Pulse Resp BP Pulse Ox O2 Del Method 01/05/24 03:10 36.7 C 70 20 111/78 97 Room Air 01/04/24 23:45 36.7 C 79 20 105/65 97 Room Air 01/04/24 19:25 36.9 C 93 H 16 94/60 L 96 Room Air Laboratory Results 01/04/24 06:13 Resident Activity Tracking Resident Involvement: Resident Care Provided Care Provided: Adult Hospital Medicine
[2024-01-05] MEDS: PRENATAL VITAMIN 1 TAB PO SCH (08:35)
[2024-01-05 09:15] VITALS: RESP 16
[2024-01-05 12:44] VITALS: BP 102/68; PULSE 72; TEMP 97.9; O2SAT 95
[2024-01-05] MEDS ORDERED: bisacodyL 5 MG TABEC PO SCH (20:00)
== END 2024-01-05 13:25 | disposition home or self-care (01) | DRG 807 ==
LOC: OPB 02:12 → 4S1 02:15 → 4E2 15:58